=== PATIENT | male | born 1970 | race Caucasian/White ===

== ENCOUNTER 2016-09-08 16:19 | Emergency (ER) | payer MEDICARE ==
[~2016-09-08] VITALS: Ht 180.3 cm; Wt 71.9 kg
[~2016-09-08 16:19] MED LIST: DIVA500T4 PO; ELVI1TAB3 PO; FLUD0.1T PO; HALO5TAB PO; HYDR25TA85 PO; IBUP-1547 PO; PARO40TA72 PO; ZIPR40CA2 PO
[2016-09-08 16:20] VITALS: Ht 180.3 cm; Wt 71.9 kg
--- NOTE | 2016-09-08 16:20 | NUR ---
PT ARRIVAL PT DIRECTLY TO CT UPON ARRIVAL. BGM AND VITALS OBTAINED WHILE IN IMAGING. PT DENIES NAUSEA, DENIES ALLERGIES, REPORTS HEADACHE PAIN. SPEECH SLURRED. LEFT SIDED FACIAL DROOP. LEFT SIDED WEAKNESS.
--- OUTSIDE RECORDS SUMMARY | 2016-09-08 16:22 | XMS REPORT ---
Author Author Brigida Madsen [facility] Address [address], [place] [id number] Care Team Providers Care Printing Pressman Name Role Phone Tena, Brigida Unavailable [phone] PROBLEMS Type Condition ICD9-CM Code GWL71-XT Code Onset Dates Condition Status SNOMED Code Problem Drug abuse F19.10 Active 73913804 Problem Acute human immunodeficiency virus (HIV) infection Z21 Active 03865092 Assessment Asymptomatic human immunodeficiency virus (HIV) infection status Z21 Jun, Active 87709702 Assessment Need for hepatitis vaccination Z23 Jun, Active 519442782 ALLERGIES Substance Reaction Event Type Date Status N.K.D.A. Unknown Non Drug Allergy Jun, Unknown SOCIAL HISTORY No smoking Hx information available PLAN OF CARE Activity Details Pending Test Human Immunodeficiency Virus (HIV-1), Quantitative, Real-time PCR (graph) 56785 Pending Test Metabolic Panel (14), Comprehensive (CMP) 17349 Pending Test CD4/CD8 Ratio Profile 86597 3 Months, prn,Reason: VITAL SIGNS Height 71 in 2016-06-25 Weight 200.2 lbs 2016-06-25 Temperature 96.0 degrees Fahrenheit 2016-06-25 Heart Rate 88 /min 2016-06-25 Respiratory Rate 16 /min 2016-06-25 Oximetry 96 % 2016-06-25 BMI 27.92 kg/m2 2016-06-25 Blood pressure systolic 118 mm Hg 2016-06-25 Blood pressure diastolic 80 mm Hg 2016-06-25 MEDICATIONS Medication Instructions Dosage Frequency Start Date End Date Duration Status Paroxetine HCl 40 MG Orally Once a day 1 tablet in the evening 24h Active Depakote 250 MG Orally 1 daily 3 tablets Active Genvoya 150 mg/150 mg/200/mg/10 mg Oral Once a day 1 tablet 24h Jul, 30 days Active Risperidone 4 MG Orally Once a day 1 tablet 24h Active Trazodone HCl 150 MG Orally Once a day 1 tablet at bedtime 24h Active RESULTS Name Result Date Reference Range Human Immunodeficiency Virus (HIV-1), Quantitative, Real-time PCR (graph) 10691 2016-06-25 HIV-1 RNA by PCR <20 log10 HIV-1 RNA TNP Metabolic Panel (14), Comprehensive (CMP) 76856 2016-06-25 Glucose, Serum 89 65-99 BUN 12 6-24 Creatinine, Serum 1.04 0.76-1.27 eGFR If NonAfricn Am 85 >59 eGFR If Africn Am 98 >59 BUN/Creatinine Ratio 12 9-20 Sodium, Serum 138 134-144 Potassium, Serum 4.9 3.5-5.2 Chloride, Serum 97 96-106 Carbon Dioxide, Total 21 18-29 Calcium, Serum 9.6 8.7-10.2 Protein, Total, Serum 7.2 6.0-8.5 Albumin, Serum 4.4 3.5-5.5 Globulin, Total 2.8 1.5-4.5 A/G Ratio 1.6 1.2-2.2 Bilirubin, Total <0.2 0.0-1.2 Alkaline Phosphatase, S 101 39-117 AST (SGOT) 41 0-40 ALT (SGPT) 66 0-44 CD4/CD8 Ratio Profile 93701 2016-06-25 Absolute CD 4 [place] 4777 274-3125 % CD 4 Pos. Lymph. 47.3 30.8-58.5 Abs. CD 8 Suppressor 920 109-897 % CD 8 Pos. Lymph. 40.0 12.0-35.5 CD4/CD8 Ratio 1.18 0.92-3.72 WBC 7.9 3.4-10.8 RBC 5.01 4.14-5.80 Hemoglobin 17.5 12.6-17.7 Hematocrit 50.6 37.5-51.0 MCV 101 79-97 MCH 34.9 26.6-33.0 MCHC 34.6 31.5-35.7 RDW 13.2 12.3-15.4 Platelets 212 150-379 Neutrophils 63 Lymphs 29 Monocytes 7 Eos 1 Basos 0 Immature Cells CARE TRANSITIONS NURSE Neutrophils (Absolute) 4.9 1.4-7.0 Lymphs (Absolute) 2.3 0.7-3.1 Monocytes(Absolute) 0.6 0.1-0.9 Eos (Absolute) 0.1 0.0-0.4 Baso (Absolute) 0.0 0.0-0.2 Immature Granulocytes 0 Immature Grans (Abs) 0.0 0.0-0.1 NRBC CARE TRANSITIONS NURSE Hematology Comments: CARE TRANSITIONS NURSE PROCEDURES Procedure Date Ordered Related Diagnosis Body Site T CELL, ABSOLUTE COUNT/RATIO June 25, 2016 COMPREHEN METABOLIC PANEL June 25, 2016 IMMUNIZATION ADMIN June 25, 2016 HEP A/HEP B VACC, ADULT IM June 25, 2016 Office Visit, Est Pt., Level 3 June 25, 2016 IMMUNIZATIONS Vaccine Route Administration Date Status TWINRIX IM Intramuscular June 25, 2016 Administered
--- OUTSIDE RECORDS SUMMARY | 2016-09-08 16:23 | XMS REPORT ---
Author Author Brigida Madsen [facility] Address [address] [place] [address], [place] [address] Care Team Providers Care Mastic Worker Name Role Phone Brigida Madsen Unavailable [phone] PROBLEMS Type Condition ICD9-CM Code ZPK33-XG Code Onset Dates Condition Status SNOMED Code Problem Drug abuse F19.10 Active 73822556 Problem Acute human immunodeficiency virus (HIV) infection Z21 Active 17849761 Assessment Screening for lipid disorders Z13.220 Apr, Active 335815698 ALLERGIES Unknown Allergies SOCIAL HISTORY No smoking Hx information available PLAN OF CARE VITAL SIGNS MEDICATIONS Unknown Medications RESULTS No Results PROCEDURES No Known procedures IMMUNIZATIONS No Known Immunizations
--- OUTSIDE RECORDS SUMMARY | 2016-09-08 16:23 | XMS REPORT | Continuity of Care Document ---
Author Author [facility] Organization [facility] Address Unknown Phone Unavailable Care Team Providers Care Advanced Manufacturing Vice President Name Role Phone ASUNCION HERRERA DO Primary Care Physician [phone] Insurance Providers Guarantor Shawna Hoskins [address] [facility] [address] [place] [address] DA Email DENIED/NO TO PT PORTAL Payer [employer] Policy Number [id number] Subscriber's Name Shawna Hoskins Relationship 17 Self Advance Directives Directive Response Recorded Date/Time Advanced Directives Type None 03/22/16 10:34pm Chief Complaint and Reason for Visit Chief Complaint Suicide Ideation/Attempt Reason for Visit Suicidal ideation Depression with suicidal ideation Problems Active Problems Medical Problem Onset Date Status Altered mental status Unknown Acute Amphetamine abuse Unknown Acute Bradycardia Unknown Acute Chronic pain Unknown Acute Dehydration Unknown Acute HIV (human immunodeficiency virus infection) Unknown Acute Hypotension Unknown Acute Polypharmacy Unknown Acute Past Problems Medical Problem Onset Date Depression with suicidal ideation Unknown Suicidal ideation Unknown Medications Current Home Medications Medication Dose Units Route Directions Days Qty Instructions Start Date Divalproex Sodium (Depakote Er) 500 Mg Tab.er.24h 500 Mg Oral Three Times A Day 07/24/15 Elviteg/Criss/Emtric/Tenofo Ala (Genvoya Tablet) 1 Each Tablet 1 Tab Oral Daily 03/22/16 Fludrocortisone Acetate 0.1 Mg Tablet 0.1 Mg Oral Daily 07/24/15 Haloperidol 5 Mg Tablet 5 Mg Oral Daily 07/24/15 Hydroxyzine Hcl 25 Mg Tablet 25 Mg Oral Three Times A Day as needed for Anxiety 07/24/15 Ibuprofen 800 Mg Tablet 800 Mg Oral Every 6 Hours as needed for Pain 04/13/16 Paroxetine Hcl 40 Mg Tablet 40 Mg Oral Bedtime 07/24/15 Ziprasidone Hcl (Geodon) 40 Mg Capsule 1 Cap Oral Bedtime 60 Capsule 03/22/16 Social History Social History Problem Response Recorded Date/Time Onset Date Status Hx Substance Use No 03/22/2016 11:29pm Not Applicable Not Applicable Hx Alcohol Use No 03/22/2016 11:29pm Not Applicable Not Applicable Has the pt used tobacco in the last 12 months Yes 08/14/2015 1:51pm Not Applicable Not Applicable Tobacco Usage smoke 08/14/2015 2:08pm Not Applicable Not Applicable Query Response Start Date Stop Date Smoking Status Current every day smoker Hospital Discharge Instructions No hospital discharge instructions. Plan of Care Discharge Date 03/23/16 2:23am Disposition 01 DISCHARGED HOME, SELF-CARE Condition at Discharge Stable Prescriptions See Medication Section Referrals ASUNCION HERRERA DO Address: [address] [place] [address] [phone] Functional Status No functional status results. Allergies, Adverse Reactions, Alerts No known allergies. Immunizations Query Response on File Recorded Date/Time Hx Influenza Vaccination No 08/14/15 1:51pm Hx Pneumococcal Vaccination No 08/14/15 1:51pm Hx Influenza Vaccination No 08/14/15 1:51pm Influenza Vaccine Hx 2016 03/22/16 11:29pm Vital Signs Acute Vital Signs Vital Response Date/Time Temperature (Fahrenheit) 97.7 deg F (96.8 - 99.1) 03/23/2016 2:23am Temperature (Calculated Celsius) 36.35747 degrees C (36.0 - 37.3) 03/23/2016 2:23am Pulse Rate (adult) 59 bpm (60 - 100) 03/23/2016 2:23am Respiratory Rate 12 breaths/min (10 - 20) 03/23/2016 2:23am O2 Sat by Pulse Oximetry 98 % (90 - 100) 03/23/2016 2:23am Blood Pressure 171/94 mm Hg 03/23/2016 2:23am Height (Feet) 5 feet 03/22/2016 10:34pm Height (Inches) 11.00 inches 03/22/2016 10:34pm Weight (Kilograms) 71.900 kg 03/22/2016 10:34pm Body Mass Index (BMI) 22.0 03/22/2016 10:34pm Results Laboratory Results Test Name Result Units Flags Reference Collection Date/Time Result Date/ Time Comments White Blood Count 8.2 T/MM3 4.5-11.0 03/22/2016 11:36pm 03/22/2016 11: 59pm Red Blood Count 4.27 M/MM3 L 4.50-5.90 03/22/2016 11:36pm 03/22/2016 11: 59pm Hemoglobin 14.4 GM/DL 13.5-17.5 03/22/2016 11:36pm 03/22/2016 11:59pm Hematocrit 41.0 % 41-53 03/22/2016 11:36pm 03/22/2016 11:59pm Mean Corpuscular Volume 96.0 UM3 80-100 03/22/2016 11:36pm 03/22/2016 11:59pm Mean Corpuscular Hemoglobin 33.7 UUG 26-34 03/22/2016 11:36pm 2015 11:59pm Mean Corpuscular Hemoglobin Concent 35.1 GM/DL 31-37 03/22/2016 11:36pm 03/22/2016 11:59pm RDW Standard Deviation 46.1 FL 36.9-50.2 03/22/2016 11:36pm 03/22/2016 11:59pm Platelet Count 154 T/MM3 130-400 03/22/2016 11:36pm 03/22/2016 11:59pm Mean Platelet Volume 10.0 UM3 9.4-12.4 03/22/2016 11:36pm 03/22/2016 11 :59pm Neutrophils (%) (Auto) 68.8 % H 33-66 03/22/2016 11:36pm 03/22/2016 11: 59pm Lymphocytes (%) (Auto) 22.6 % L 23-45 03/22/2016 11:36pm 03/22/2016 11: 59pm Monocytes (%) (Auto) 8.2 % 0-9.0 03/22/2016 11:36pm 03/22/2016 11:59pm Eosinophils (%) (Auto) 0.2 % 0-4 03/22/2016 11:36pm 03/22/2016 11:59pm Basophils (%) (Auto) 0.1 % 0-2 03/22/2016 11:36pm 03/22/2016 11:59pm Immature Granulocyte % (Auto) 0.1 % 0.0-0.5 03/22/2016 11:36pm 2015 11:59pm Absolute Neutrophils (auto) 5.6 T/MM3 1.8-7.7 03/22/2016 11:36pm 2015 11:59pm Absolute Lymphocytes (auto) 1.9 T/MM3 1-4.8 03/22/2016 11:36pm 2015 11:59pm Absolute Monocytes (auto) 0.7 T/MM3 0-0.8 03/22/2016 11:36pm 2015 11:59pm Absolute Eosinophils (auto) 0.0 T/MM3 0-0.5 03/22/2016 11:36pm 2015 11:59pm Absolute Basophils (auto) 0.0 T/MM3 0-0.2 03/22/2016 11:36pm 2015 11:59pm Absolute Immature Granulocyte (auto 0.01 T/MM3 0.00-0.03 03/22/2016 11: 36pm 03/22/2016 11:59pm Icterus Index < 2 0-7 03/22/2016 11:36pm 03/23/2016 12:02am Chemistry Specimen Hemolysis < 15 0-25 03/22/2016 11:36pm 03/23/2016 12:02am 0-25: Specimen Exhibited No Hemolysis. Turbidity < 20 0-20 03/22/2016 11:36pm 03/23/2016 12:02am Sodium Level 145 MEQ/L H 134-144 03/22/2016 11:36pm 03/23/2016 12:07am Potassium Level 3.2 MEQ/L L 3.6-5 03/22/2016 11:36pm 03/23/2016 12:07am Chloride Level 105 MEQ/L 98-107 03/22/2016 11:36pm 03/23/2016 12:07am Carbon Dioxide Level 26 MEQ/L 22-30 03/22/2016 11:36pm 03/23/2016 12: 07am Anion Gap 14 MEQ/L 5-15 03/22/2016 11:36pm 03/23/2016 12:07am Blood Urea Nitrogen 14.0 MG/DL 9-20 03/22/2016 11:36pm 03/23/2016 12: 07am Creatinine 0.9 MG/DL 0.8-1.5 03/22/2016 11:36pm 03/23/2016 12:07am BUN/Creatinine Ratio 16 RATIO 6-26 03/22/2016 11:36pm 03/23/2016 12: 07am Glomerular Filtration Rate Calc 91 03/22/2016 11:36pm 03/23/2016 12 :07am Glucose Level 93 MG/DL 75-110 03/22/2016 11:36pm 03/23/2016 12:07am Calculated Osmolality 280 MOSM/KG 261-280 03/22/2016 11:36pm 2015 12:07am Calcium Level 9.3 MG/DL 8.4-10.2 03/22/2016 11:36pm 03/23/2016 12:07am Total Bilirubin 0.50 MG/DL 0.20-1.30 03/22/2016 11:36pm 03/23/2016 12: 07am Alkaline Phosphatase 93 U/L 38-126 03/22/2016 11:36pm 03/23/2016 12: 07am Total Protein 7.0 G/DL 6.3-8.2 03/22/2016 11:36pm 03/23/2016 12:07am Albumin 3.8 G/DL 3.5-5.0 03/22/2016 11:36pm 03/23/2016 12:07am Globulin 3.2 G/DL 2.4-3.6 03/22/2016 11:36pm 03/23/2016 12:07am Albumin/Globulin Ratio 1.2 RATIO 1.1-2.2 03/22/2016 11:36pm 03/23/2016 12:07am Aspartate Amino Transf (AST/SGOT) 25 U/L 17-59 03/22/2016 11:36pm 03/23 12:07am Alanine Aminotransferase (ALT/SGPT) 31 U/L 21-72 03/22/2016 11:36pm 03/2016 12:07am Acetaminophen Level < 10 UG/ML L 10-30 03/22/2016 11:36pm 03/23/2016 12: 07am TOXIC <4 HR POST INGESTION: >150 MG/L; TOXIC <12 HR POST INGESTION: >50 MG/L Salicylates Level < 1.0 MG/DL L 2-20 03/22/2016 11:36pm 03/23/2016 12: 07am Alcohol, Quantitative <10 MG/DL <10 03/22/2016 11:36pm 03/23/2016 12: 07am Thyroid Stimulating Hormone (TSH) 3.31 MIU/L 0.47-4.68 03/22/2016 11: 36pm 03/23/2016 12:55am Urine Collection Type VOIDED-NOT CC-MIDSTR 03/22/2016 11:46pm 03/23 12:10am Urine Color YELLOW YELLOW 03/22/2016 11:46pm 03/23/2016 12:10am Urine Turbidity CLEAR CLEAR 03/22/2016 11:46pm 03/23/2016 12:10am Urine Specific [place] 1.020 1.015-1.025 03/22/2016 11:46pm 2015 12:10am Urine pH 6.0 5.0-8.0 03/22/2016 11:46pm 03/23/2016 12:10am Urine Leukocyte Esterase NEGATIVE NEGATIVE 03/22/2016 11:46pm 2015 12:10am Urine Nitrite NEGATIVE NEGATIVE 03/22/2016 11:46pm 03/23/2016 12: 10am Urine Protein NEGATIVE NEGATIVE 03/22/2016 11:46pm 03/23/2016 12: 10am Urine Glucose (UA) NEGATIVE NEGATIVE 03/22/2016 11:46pm 03/23/2016 12 :10am Urine Ketones 1+ A NEGATIVE 03/22/2016 11:46pm 03/23/2016 12:10am Urine Urobilinogen 1.0 EU/DL NORMAL 03/22/2016 11:46pm 03/23/2016 12: 10am Urine Bilirubin NEGATIVE NEGATIVE 03/22/2016 11:46pm 03/23/2016 12: 10am Urine Blood TRACE-INTACT A NEGATIVE 03/22/2016 11:46pm 03/23/2016 12: 10am Urinalysis Comment MICROSCOPIC NOT IND. 03/22/2016 11:46pm 2015 12:10am Procedures No known history of procedures. Encounters Encounter Location Arrival/Admit Date Discharge/Depart Date Attending Provider Departed Emergency Room [facility] 03/22/16 10:31pm 03/23/16 2: 23am ESPINOZA MEADE MD Recent Diagnosis
--- OUTSIDE RECORDS SUMMARY | 2016-09-08 16:24 | XMS REPORT | Continuity of Care Document ---
Author Author [facility] Organization [facility] Address Unknown Phone Unavailable Allergies Active Description Code Type Severity Reaction Onset Reported/Identified Relationship to Patient Clinical Status Yes No Known Allergies NKMA N/A N/A 08/14/2015 Medications Medication Packaging Start Date Stop Date Route Dosage Sig benztropine 1 mg tablet 07/11/2015 11/04/2015 1 mg take 1 ( one) Tablet by Oral route daily traZODone 300 mg tablet 07/11/2015 09/17/2015 300 mg take 1 ( one) Tablet by Oral route daily haloperidol 5 mg tablet Tablet 07/11/2015 11/04/2015 5 mg take 1 (one) Tablet by Oral route two times per day fludrocortisone 0.1 mg tablet 07/11/2015 09/17/2015 0.1 mg take 1 (one) Tablet by Oral route daily mirtazapine 15 mg tablet 07/11/2015 11/04/2015 15 mg take 1 ( one) Tablet by Oral route daily PARoxetine 40 mg tablet Tablet 07/11/2015 11/04/2015 40 mg 2 ( two) Tablet by Oral route daily busPIRone 10 mg tablet Tablet 07/11/2015 11/04/2015 10 mg take 2 (two) Tablet by Oral route two times per day Depakote ER 500 mg tablet,extended release 07/11/20152015 500 mg take 3 (three) Tablet by Oral route daily fludrocortisone 0.1 mg tablet 09/17/2015 0.1 mg take 1 (one ) Tablet by Oral route daily Depakote 500 mg tablet,delayed release Tablet 09/17/2015 500 mg take 1 (one) Tablet by Oral route daily Genvoya 150 mg-150 mg-200 mg-10 mg tablet Tablet 11/04/2015 [phone] mg take 1 (one) Tablet by Oral route at bedtime benztropine 1 mg tablet Tablet 11/04/2015 1 mg take 1 (one) Tablet by Oral route two times per day Geodon 40 mg capsule Capsule 11/04/2015 40 mg take 1 (one) Capsule by Oral route at bedtime Problems Date Dx Coded Attending Type Code Diagnosis Diagnosed By 07/25/2015 VANNA DANIEL MD B20 Human immunodeficiency virus [HIV] disease VANNA DANIEL MD 07/25/2015 VANNA DANIEL MD F15.10 Other stimulant abuse, uncomplicated VANNA DANIEL MD 07/25/2015 VANNA DANIEL MD F31.9 Bipolar disorder, unspecified VANNA DANIEL MD 07/25/2015 VANNA DANIEL MD Z91.81 History of falling VANNA DANIEL MD 08/21/2015 VANNA DANIEL MD F13.10 Sedative, hypnotic or anxiolytic abuse, uncomplicated EPI KEY, [facility] A 08/21/2015 VANNA DANIEL MD G93.40 Encephalopathy, unspecified EPI KEY, [facility] 08/21/2015 VANNA DANIEL MD R00.1 Bradycardia, unspecified EPI KEY, [facility] 08/21/2015 VANNA DANIEL MD Z21 Asymptomatic human immunodeficiency virus [ HIV] infection status EPI KEY, [facility] A 08/22/2015 VANNA DANIEL MD F13.10 Sedative, hypnotic or anxiolytic abuse, uncomplicated EPI KEY, [facility] A 08/22/2015 VANNA DANIEL MD G93.40 Encephalopathy, unspecified EPI KEY, [facility] A 08/22/2015 VANNA DANIEL MD R00.1 Bradycardia, unspecified EPI KEY, [facility] A 08/22/2015 VANNA DANIEL MD Z21 Asymptomatic human immunodeficiency virus [ HIV] infection status EPI KEY, [facility] A 08/26/2015 VANNA DANIEL MD F13.10 Sedative, hypnotic or anxiolytic abuse, uncomplicated EPI KEY, [facility] A 08/26/2015 VANNA DANIEL MD G93.40 Encephalopathy, unspecified EPI KEY, [facility] A 08/26/2015 VANNA DANIEL MD R00.1 Bradycardia, unspecified EPI KEY, [facility] A 08/26/2015 VANNA DANIEL MD Z21 Asymptomatic human immunodeficiency virus [ HIV] infection status EPI KEY, [facility] A 08/28/2015 VANNA DANIEL MD F13.10 Sedative, hypnotic or anxiolytic abuse, uncomplicated EPI KEY, [facility] A 08/28/2015 VANNA DANIEL MD G93.40 Encephalopathy, unspecified EPI KEY, MAHA A 08/28/2015 VANNA DANIEL MD R00.1 Bradycardia, unspecified EPI KEY, MARISOLA A 08/28/2015 VANNA DANIEL MD Z21 Asymptomatic human immunodeficiency virus [ HIV] infection status EPI KEY, ZACARIAS A 08/29/2015 Héctor,Miroslava Final D69.6 Thrombocytopenia, unspecified 08/29/2015 Héctor,Miroslava Final E46 Unspecified protein-calorie malnutrition 08/29/2015 Héctor,Miroslava Final E83.39 Other disorders of phosphorus metabolism 08/29/2015 Héctor,Miroslava Final E86.0 Dehydration 08/29/2015 Héctor,Miroslava E87.6 Hypokalemia 08/29/2015 Héctor,Miroslava Final F15.10 Other stimulant abuse, uncomplicated 08/29/2015 Héctor,Miroslava Final F17.210 Nicotine dependence, cigarettes, uncomplicated 08/29/2015 Héctor,Miroslava Final F31.9 Bipolar disorder, unspecified 08/29/2015 Héctor,Miroslava Final 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, unspecified 08/29/2015 Héctor,Miroslava Final G40.909 Epilepsy, unspecified, not intractable, without status epilepticus 08/29/2015 Héctor,Miroslava Final G92 Toxic encephalopathy 08/29/2015 Héctor,Miroslava Final J96.00 Acute respiratory failure, unspecified whether with hypoxia or hypercapnia 08/29/2015 Héctor,Miroslava Final R00.1 Bradycardia, unspecified 08/29/2015 Anaya Jennifer Admitting R41.82 Altered mental status, unspecified 08/29/2015 Héctor,Miroslava Final R55 Syncope and collapse 08/29/2015 Héctor,Miroslava Final Z21 Asymptomatic human immunodeficiency virus [HIV] infection status 08/29/2015 Héctor,Miroslava Final Z68.1 Body mass index (BMI) 19 or less, adult 08/29/2015 Anaya Jennifer Final A41.9 Sepsis, unspecified organism 09/19/2015 VANNA DANIEL MD D69.6 Thrombocytopenia, unspecified VANNA DANIEL MD 09/19/2015 VANNA DANIEL MD 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 Sedative, hypnotic or anxiolytic abuse, uncomplicated VANNA DANIEL MD 09/19/2015 VANNA DANIEL MD G93.40 Encephalopathy, unspecified MARÍA KEY, VANNA Ruano 09/19/2015 VANNA DANIEL MD Z21 Asymptomatic human immunodeficiency virus [ HIV] infection status VANNA DANIEL MD 10/21/2015 VANNA DANIEL MD F13.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, hypnotic or anxiolytic abuse, uncomplicated [facility] 10/21/2015 VANNA DANIEL MD G93.40 Encephalopathy, unspecified [facility] 10/21/2015 VANNA DANIEL MD R00.1 Bradycardia, unspecified [facility] 10/21/2015 VANNA DANIEL MD Z21 Asymptomatic human immunodeficiency virus [ HIV] infection status [facility] 11/08/2015 VANNA DANIEL MD F13.10 Sedative, hypnotic or anxiolytic abuse, uncomplicated VANNA DANIEL MD 11/08/2015 VANNA DANIEL MD G93.40 Encephalopathy, unspecified VANNA DANIEL MD 11/08/2015 VANNA DANIEL MD R00.1 Bradycardia, unspecified VANNA DANIEL MD 11/08/2015 VANNA DANIEL MD Z21 Asymptomatic human immunodeficiency virus [ HIV] infection status VANNA DANIEL MD Procedures Code [place] [address] Office or other outpatient visit for the evaluation and management of a new patient, which requires VANNA DANIEL MD 07/25/2015 [id number] Office or other outpatient visit for the evaluation and management of a new patient, which requires VANNA DANIEL MD 07/25/2015 [id number] Drainage of Spinal Canal, Percutaneous Approach, Diagnostic 08/15/2015 09214 Subsequent hospital care, per day, for the evaluation and management of a patient, which requires at ZACARIAS CHOWDARY MD 08/22/2015 62942 Office or other outpatient visit for the evaluation and management of a new patient, which requires VANNA DANIEL MD 09/03/2015 44336 Initial hospital care, per day, for the evaluation and management of a patient, which requires these ZACARIAS CHOWDARY MD 09/03/2015 86528 Subsequent hospital care, per day, for the evaluation and management of a patient, which requires at ZACARAIS CHOWDARY MD 09/03/2015 63879 Subsequent hospital care, per day, for the evaluation and management of a patient, which requires at ZACARIAS CHOWDARY MD 09/03/2015 89653 Subsequent hospital care, per day, for the evaluation and management of a patient, which requires at ZACARIAS CHOWDARY MD 09/03/2015 51677 Subsequent hospital care, per day, for the evaluation and management of a patient, which requires at ZACARIAS CHOWDARY MD 09/11/2015 20145 Subsequent hospital care, per day, for the evaluation and management of a patient, which requires at ZACARIAS CHOWDARY MD 09/11/2015 65234 Initial hospital care, per day, for the evaluation and management of a patient, which requires these ZACARIAS CHOWDARY MD 09/11/2015 65413 Subsequent hospital care, per day, for the evaluation and management of a patient, which requires at ZACARIAS CHOWDARY MD 09/11/2015 01796 Subsequent hospital care, per day, for the evaluation and management of a patient, which requires at ZACARIAS CHOWDARY MD 09/12/2015 91783 Subsequent hospital care, per day, for the evaluation and management of a patient, which requires at ZACARIAS CHOWDARY MD 09/13/2015 73594 Subsequent hospital care, per day, for the evaluation and management of a patient, which requires at ZACARIAS CHOWDARY MD 09/16/2015 59374 Subsequent hospital care, per day, for the evaluation and management of a patient, which requires at ZACARIAS CHOWDARY MD 09/17/2015 17615 Subsequent hospital care, per day, for the evaluation and management of a patient, which requires at ZACARIAS CHOWDARY MD 09/18/2015 18932 Office or other outpatient visit for the evaluation and management of an established patient, which VANNA DANIEL MD 09/19/2015 85575 Subsequent hospital care, per day, for the evaluation and management of a patient, which requires at ZACARIAS CHOWDARY MD 09/19/2015 47045 Subsequent hospital care, per day, for the evaluation and management of a patient, which requires at ZACARIAS CHOWDARY MD 09/20/2015 89482 Office or other outpatient visit for the evaluation and management of an established patient, which VANNA DANIEL MD 09/22/2015 21856 Subsequent hospital care, per day, for the evaluation and management of a patient, which requires at ZACARIAS CHOWDARY MD 09/22/2015 38963 Office or other outpatient visit for the evaluation and management of an established patient, which VANNA DANIEL MD 09/22/2015 42277 Subsequent hospital care, per day, for the evaluation and management of a patient, which requires at ZACARIAS CHOWDARY MD 09/22/2015 03142 Subsequent hospital care, per day, for the evaluation and management of a patient, which requires at ZACARIAS CHOWDARY MD 10/31/2015 LAB Lab only VANNA DANIEL MD 11/08/2015 70304 Office or other outpatient visit for the evaluation and management of a new patient, which requires VANNA DANIEL MD 11/13/2015 45269 Office or other outpatient visit for the evaluation and management of an established patient, which VANNA DANIEL MD 04/20/2016 Results Test Result Range ANAPLASMA PHAGOCYTOPHILUM AND EHRLICHIA CHAFFEENSIS ANTIBODY PANEL - 09/19/15 22:01 INTERPRETATION: NRG E.CHAFFEENSIS AB IGG <1:64 NRG E.CHAFFEENSIS AB IGM <1:20 NRG A.PHAGOCYTOPHILUM IGG <1:64 NRG A.PHAGOCYTOPHILUM IGM <1:20 NRG LYME DISEASE AB W/REFL TO BLOT (IGG, IGM) - 09/19/15 22:01 Misc. Result, see notes for description 1.05 index NRG LYME DISEASE AB(IGG),BLOT NEGATIVE NEGATIVE 18 KD (IGG) BAND NON-REACTIVE NRG 23 KD (IGG) BAND NON-REACTIVE NRG 28 KD (IGG) BAND NON-REACTIVE NRG 30 KD (IGG) BAND NON-REACTIVE NRG 39 KD (IGG) BAND NON-REACTIVE NRG 41 KD (IGG) BAND NON-REACTIVE NRG 45 KD (IGG) BAND NON-REACTIVE NRG 58 KD (IGG) BAND NON-REACTIVE NRG 66 KD (IGG) BAND NON-REACTIVE NRG 93 KD (IGG) BAND NON-REACTIVE NRG LYME DISEASE AB(IGM),BLOT POSITIVE NEGATIVE 23 KD (IGM) BAND NON-REACTIVE NRG 39 KD (IGM) BAND REACTIVE NRG 41 KD (IGM) BAND REACTIVE NRG RICKETTSIA (RMSF) IGG,IGM W/REFL TO TITERS - 09/19/15 22:01 RMSF IGG NOT DETECTED NRG RMSF IGM NOT DETECTED NRG LYME DISEASE AB W/REFL TO BLOT (IGG, IGM) - 11/06/15 15:55 Misc. Result, see notes for description 0.97 index NRG LYME DISEASE AB(IGG),BLOT NEGATIVE NEGATIVE 18 KD (IGG) BAND NON-REACTIVE NRG 23 KD (IGG) BAND NON-REACTIVE NRG 28 KD (IGG) BAND NON-REACTIVE NRG 30 KD (IGG) BAND NON-REACTIVE NRG 39 KD (IGG) BAND NON-REACTIVE NRG 41 KD (IGG) BAND NON-REACTIVE NRG 45 KD (IGG) BAND NON-REACTIVE NRG 58 KD (IGG) BAND NON-REACTIVE NRG 66 KD (IGG) BAND NON-REACTIVE NRG 93 KD (IGG) BAND NON-REACTIVE NRG LYME DISEASE AB(IGM),BLOT POSITIVE NEGATIVE 23 KD (IGM) BAND REACTIVE NRG 39 KD (IGM) BAND NON-REACTIVE NRG 41 KD (IGM) BAND REACTIVE NRG Encounters ACCT No. Visit Date/Time Discharge Status Pt. Type Provider Facility Loc./Unit Complaint [id number] 11/08/2015 13:03:00 ACT Outpatient MARÍA KEY, VANNA Ruano
--- NOTE | 2016-09-08 16:38 | DI ---
Indication: ITS.REASON: left-sided weakness facial droop upper extremity stroke PROCEDURE: CT HEAD W/O CONTRAST: Encounter: Initial Comparison: Head CT dated August 14, 2015 Technique: Axial CT images through the head were performed without contrast. Iterative Reconstruction dose reducing technique was utilized. FINDINGS: There is a large axial intracranial hemorrhage centered in the right basal ganglia and thalamus region measuring 5.6 cm anteroposteriorly and 3 cm transversely on axial image #28. This causes significant mass effect with effacement of the right lateral ventricle and leftward midline shift measuring 4 to 5 mm. There is intraventricular extension of hemorrhage in the right lateral ventricle as well. There is surrounding vasogenic edema in the right frontal lobe. No epidural or subdural hemorrhage appreciated. Small amount of hemorrhage is seen within the third and fourth ventricles. Bone windows show no acute calvarial fracture. There is moderate mucosal thickening in the left maxillary sinus noted incidentally. Mastoid air cells are clear Impression: Large acute right basal ganglia parenchymal hemorrhage with mass effect, ventricular compression and midline shift. This is likely a hypertensive hemorrhage or less likely hemorrhagic stroke. There is intraventricular extension of hemorrhage. Emergent neurosurgical consultation is recommended. These results were discussed with Dr. Duran in the emergency department at 1630 on September 08, 2016, one minute after the conclusion of the exam. .
--- NOTE | 2016-09-08 16:41 | ERPDOC ---
Departure Disposition Decision Date: September 08, 2016 Disposition Decision Time: 16:40 Disposition: 02 TO [facility] Impression Impression Impression: Primary Impression: Fall Encounter type: initial encounter Qualified Codes: W19.XXXA - Unspecified fall, initial encounter Additional Impression: Cerebral hemorrhage, acute Condition: Stable Seen By: Physician only Referrals: ASUNCION HERRERA DO (PCP) Problems/Meds/Labs Reviewed?: Yes Medications reviewed and manag: Yes Follow up care ordered?: Yes Mental Status: Alert, Oriented HPI - CVA/Neuro General Chief Complaint: Neuro Symptoms/Deficits Stated Complaint: STROKE/METH USE Time Seen by Provider: 16:20 Source: patient, family Exam Limitations: no limitations Onset of Symptoms Onset of Symptoms Date: September 08, 2016 Onset of Symptoms Time: 16:00 HPI - CVA/NEURO Initial Comments Patient is a 46-year-old male presents to the emergency department via EMS for headache, fall, left-sided facial drooping, methamphetamine. 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 Patient fell this morning, called his daughter he was complaining of headache and weakness. EMS arrival patient was alert and oriented 3, no deficits. Patient was placed on EMS cot, however wall patient was being placed in the ambulance he developed left-sided facial drooping with left upper and lower extremity weakness as well as tongue deviation to the left. Patient was brought code red to the emergency department for evaluation acute stroke. Allergies: Coded Allergies: No Known Allergies (Unverified , 03/22/16) Past History Past Medical History Metabolic: hypercholesterolemia Infectious: HIV Psychological: bipolar, drug abuse Surgical History Joint: knee Vaccines Hx Influenza Vaccination: No Hx Pneumococcal Vaccination: No Social History Substance Use Type: methamphetamine Substance last used: hours (ago) (10) Housing: apartment Household Members: none Review of Systems Constitutional Constitutional: DENIES: appetite decrease, chills, dizziness, fever, weakness Eyes Vision: DENIES: blurring, loss of visual bey Cardiovascular Cardiac: DENIES: chest pain General: DENIES: frequency, urgency Musculoskeletal General: see HPI Neurological General: headache, weakness Endocrine Endocrine: DENIES: heat/cold intolerance Hematologic/Lymphatic Hematologic/Lymphatic: DENIES: anemia Physical Exam General General Nourishment: well nourished, well developed General Body Habitus: well groomed Vitals and Pain Weight: Kilograms: Height (feet): 5 Height (inches): 11.00 Triage Pain Scale: RN VS reviewed by Provider: Yes Eyes (brief) Eyes Brief: found: EOMI ENMT (brief) ENMT Brief: FOUND: normal dentition, NOT FOUND: nasal erythema Neck (brief) Neck: NOT FOUND: adenopathy Respiratory (brief) Respiratory: FOUND: clear all bey, equal bilaterally, NOT FOUND: rales, wheezes Cardiovascular (brief) Cardiac: FOUND: regular rate, regular rhythm Capillary Refill: <2 sec Abdomen (brief) Abdominal Brief: FOUND: bowel normo active x4, soft, NOT FOUND: tender Musculoskeletal (brief) Musculoskeletal Brief: NOT FOUND: spasm, tenderness Integumentary (brief) Integumentary Brief: FOUND: dry, pink, warm, NOT FOUND: rash Neurologic Mental Status: FOUND: alert, oriented GCS Adult : GCS Eye Opening: (4)Spontaneous GCS Verbal: (5)Oriented GCS Motor: (6)Obeys Commands GCS Total: 15 Cranial Nerves: FOUND: other (patient had left-sided facial droop with left- sided tongue deviation) Motor #1: Motor Side: right Motor Location: biceps, triceps, wrist, finger extensors, finger flexors, quadriceps, hamstring, foot extension, foot flexion, career development consultant strength Motor Degree: 5 Motor #2: Motor Side: left Motor Location: biceps, triceps, wrist, finger extensors, finger flexors, quadriceps, hamstring, foot extension, foot flexion, career development consultant strength Motor Degree: 2 Sensation: FOUND: soft touch intact x4 ext Psychiatric (brief) Psychiatric Brief: FOUND: alert, oriented Differential Diagnoses Considering: Thrombotic CVA, Hemorrhagic CVA, Delirium, Dementia, Drug Overdose , TIA Progress Results/Orders Orders Procedure Category Date Status Time Ct Head W/O Contrast CT 09/08/16 Resulted 16:20 Progress Progress Patient with large right thalamic brain bleed, with a fall this morning. Discuss case with Dr. Martínez, he will accept patient he will consult neurology/ neurosurgery CT CT : CT: Head no contrast Interpretation: Abnormal, Reviewed Written Report (6 cm right thalamic bleed with left-sided shift 4 mm) CORINNE HE MD September 08, 2016 16:41
[2016-09-08 16:42] VITALS: BP 161/82; PULSE 57; RESP 32; TEMP 97.3; O2SAT 96
--- NOTE | 2016-09-08 16:42 | NUR ---
DEPART PT TRANSFERRED TO [facility] AT THIS TIME [facility]IA [facility]. C-COLLAR IN PLACE. IMAGING DISC SENT WITH EMS. PT IV/IVF IN PLACE AND INFUSING. DAUGHTER () AT SIDE PRIOR TO DEPARTURE - HAS PT'S BELONGINGS.
== END 2016-09-08 16:42 | disposition short-term general hospital (02) ==
LOC: ED 16:19
DX: S06.340A Traumatic hemorrhage of right cerebrum without loss of consciousness, initial encounter (principal); W19.XXXA Unspecified fall, initial encounter; Y93.9 Activity, unspecified; Y92.9 Unspecified place or not applicable; Y99.8 Other external cause status